=== PATIENT | male | born 1975 | race African-American/Black ===

== ENCOUNTER 2022-07-06 02:00 | Inpatient (IN) | payer MEDICARE, OTHER ==
[~2022-07-06] VITALS: Ht 162.6 cm; Wt 56.9 kg
[2022-07-06] MEDS ORDERED: REMEDY ESSENTIAL ZINC PASTE 113 GM TP PRN (02:45)
[2022-07-06] MEDS ORDERED: ONDANSETRON 4 MG/2 ML VIAL IV PRN (02:45)
[2022-07-06] MEDS ORDERED: ZOLPIDEM 5 MG TABLET PO PRN (02:45)
[2022-07-06] MEDS ORDERED: MAGNESIUM HYDROXIDE 30 ML LIQUID UDC PO PRN (02:45)
[2022-07-06] MEDS ORDERED: ACETAMINOPHEN 325 MG TABLET PO PRN (02:45)
--- NOTE | 2022-07-06 03:00 | NUR ---
ADMITTED THIS 46 Y.O. MALE DIRECT ADMIT FROM [facility],VIA GURNEY ,ALERT,ORIENTED X2-3, OXYGEN INHALATION AT 4L/MIN VIA NASAL CANNULA SATURATING 90-95%, PT IS AMOUTH BREATHER. 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 SENIOR LIVING ASSESSMENT DONE, PHOTO OF LOWER CHIN TAKEN. HISTORY OF HYPOTHYROID,DYSPHAGIA
[2022-07-06 03:02] VITALS: BP 146/95
[2022-07-06] MEDS ORDERED: DOCU-141 PO (03:49)
[2022-07-06] MEDS ORDERED: CLON0.1T PO (03:49)
[2022-07-06] MEDS ORDERED: ACET600C PO (03:49)
[2022-07-06] MEDS ORDERED: TEMA15CA5 PO (03:49)
[2022-07-06] MEDS ORDERED: PENT400T17 PO (03:49)
[2022-07-06] MEDS ORDERED: MUPI30OI3 TP (03:49)
[2022-07-06] MEDS ORDERED: LEVO75TA PO (03:49)
[2022-07-06] MEDS ORDERED: SENN-18 PO (03:49)
[2022-07-06] MEDS ORDERED: QUET25TA PO (03:49)
[2022-07-06] MEDS ORDERED: EPIN0.3A4 IM (03:49)
[2022-07-06] MEDS ORDERED: ASCO500C18 PO (03:49)
[2022-07-06] MEDS ORDERED: AMOX-430 PO (03:49)
[2022-07-06] MEDS ORDERED: LORA2TAB95 PO ×2 (03:49)
[2022-07-06] MEDS ORDERED: ACET-2154 PO (03:49)
[2022-07-06] MEDS ORDERED: OLAN5TAB3 PO (03:49)
[2022-07-06] MEDS ORDERED: CITA40TA22 PO (03:49)
[2022-07-06] MEDS ORDERED: CHLO473M5 PO (03:49)
[2022-07-06] MEDS ORDERED: OLAN10TA3 PO (03:49)
[2022-07-06] MEDS ORDERED: VITA100012 PO (03:49)
[2022-07-06] MEDS ORDERED: GUAI-1133 PO (03:49)
--- NOTE | 2022-07-06 04:00 | NUR ---
IV SITE ON LEFT AC INFILTRATED, NEW IV G20 INSERTED ON RIGHT FOREARMBREATHING TREATMENTS ADMINISTERED, ,FLORENCE ANTON NP NOTIFIED AND OBTAIED ADMISSION ORDERS, PT ABLE TO SWALLOW USING SMALL STRAW.
[2022-07-06] MEDS: GUAIFENESIN/DEXTROMETHORPHAN 5 ML UDC PO PRN (04:47)
[2022-07-06] MEDS ORDERED: VANCOMYCIN IV 1,000 MG in IV DEXTROSE 5% 250 ML IV ONE (05:00)
[2022-07-06] MEDS: IPRATROPIUM BROMIDE 0.5 MG/2.5 ML NEBU NEB PRN (05:36)
[2022-07-06 05:40] VITALS: BP 129/89
--- NOTE | 2022-07-06 06:00 | NUR ---
ATB MAXEFIME GIVEN ORDERED AND PT TOLERATED IT WELL,RESTED FAIRLY WELL, WITH OCCASSIONAL BOUTS OF NON PRODUCTIVE COUGH, ROBITUSSIN GIVEN.CT CHEST SHOWED LUNG MASS.COVID .NEGATIVE.
[2022-07-06 07:15] LABS: HEMATOCRIT 31.2 % (36.7-47.1); MEAN CORPUSCULAR HEMOGLOBIN 28.6 uug (23.8-33.4); MEAN CORPUSCULAR VOLUME 86.5 fL (73.0-96.2); PLATELET COUNT (AUTO) 890 K/uL (152-348)
--- NOTE | 2022-07-06 07:30 | NUR ---
ENDORSED TO AM NURSE IN FAIR CONDITION.
[2022-07-06 07:33] LABS: CARBON DIOXIDE 25 mmol/L (21-32); CHLORIDE 102 mmol/L (98-107); CREATININE 0.7 mg/dL (0.6-1.3); GLUCOSE 92 mg/dL (74-106); POTASSIUM 3.8 mmol/L (3.5-5.1); UREA NITROGEN, BLOOD 22 mg/dL (7-18)
[2022-07-06] MEDS: ALBUTEROL SULFATE 1.25 MG/3 ML NEBU NEB SCH ×3 (08:17→19:34)
--- NOTE | 2022-07-06 10:49 | NUR ---
WOUND CARE CONSULT: PT PRESENTS WITH SACRAL INTACT DEEP TISSUE INJURY WELL CHIN LESIONS, PRESENT ON ADMISSION. SURGICAL CONSULT CALLED TO DR LAKHANI. RECOMMENDATIONS MADE FOR SKIN PROTECTION. DISCUSSED WITH NURSING STAFF. CHIN WOUNDS/LESIONS COVERED WITH BORDERGAUZE AT THIS TIME. FAMILY MEMBER AT BEDSIDE. MD IN AGREEMENT WITH PLAN OF CARE.
[2022-07-06 11:45] VITALS: BP 132/78
[2022-07-06] MEDS ORDERED: Medication Not On Formulary EA (Lorazepam (Ativan) 2 MG) PO PRN (14:30)
[2022-07-06] MEDS ORDERED: DOCUSATE SODIUM 100 MG CAPSULE PO PRN (14:30)
[2022-07-06] MEDS ORDERED: SENNOSIDES 1 TABLET PO PRN (14:30)
[2022-07-06] MEDS ORDERED: TEMAZEPAM 15 MG CAPSULE PO PRN (14:30)
[2022-07-06] MEDS ORDERED: LORAZEPAM 1 MG TABLET PO PRN (15:00)
--- NOTE | 2022-07-06 15:53 | NUR ---
Pt. noted to be stable during the shift. Alert and oriented x4. No acute distress noted. Able to got to the bathroom with assist. No c/o pain. All need attended and met. Able to make the need known. Compliance with the care given. Will continue monitoring the patient.
[2022-07-06 15:57] VITALS: BP 152/97
[2022-07-06] MEDS: ASCORBIC ACID 500 MG TABLET PO SCH (16:04)
[2022-07-06] MEDS: QUETIAPINE FUMARATE 25 MG TABLET PO SCH (16:04)
[2022-07-06] MEDS: PENTOXIFYLLINE 400 MG TABLET.SA PO SCH (16:36)
[2022-07-06] MEDS: CHLORHEXIDINE GLUCONATE 15 ML MOUTHWASH MM SCH (16:36)
[2022-07-06] MEDS: CEFEPIME HCL 1 G in IV DEXTROSE 5% 50 ML IV SCH ×3 (19:00→23:26)
--- NOTE | 2022-07-06 19:30 | NUR ---
Received patient resting in bed with sister by the bedside. AAOx4. No signs of distress noted at this time. On 2L O2 NC. Is SR on tele monitor, HR 98. Right FA IV access is intact and patent. Is ambulatory and complains of no pain. Concerns were communicated and resolved at this time. Endorsed safety and comfort measures.
[2022-07-06 20:00] VITALS: BP 152/95
[2022-07-06] MEDS: OLANZAPINE 5 MG TABLET PO SCH (20:34)
[2022-07-06] MEDS: MUPIROCIN 2% OINT 22 GM TUBE TP SCH (20:35)
[2022-07-07] VITALS: BP 168/105
[2022-07-07] MEDS: ALBUTEROL SULFATE 1.25 MG/3 ML NEBU NEB SCH ×4 (00:38→19:53)
--- NOTE | 2022-07-07 00:50 | NUR ---
Patient's blood pressure was noted to be elevated 168/105, HR 96, SR on tele monitor. On 2L NC, 96% O2 sat. No distress noted at this time. Is able to fall asleep with adequate rest comfortably. Denies any pain. Notified Dr. Cuevas on current situation. No additional orders provided. Will continue to monitor.
[2022-07-07 04:00] VITALS: BP 175/124
[2022-07-07] MEDS: CHLORHEXIDINE GLUCONATE 15 ML MOUTHWASH MM SCH ×3 (06:02→21:15)
[2022-07-07] MEDS: CEFEPIME HCL 1 G in IV DEXTROSE 5% 50 ML IV SCH (06:32)
--- NOTE | 2022-07-07 06:50 | NUR ---
Patient slept intermittently throughout the night. No reaction to antibiotics were noted. No signs of distress or complains of pain. Is SR on tele monitor, HR 96. Blood pressure is still elevated, will endorse. All needs were attended to and met. Maintained safety and comfort measures.
[2022-07-07] MEDS ORDERED: LEVOTHYROXINE SODIUM 75 MCG TABLET PO SCH (07:00)
[2022-07-07 07:34] LABS: HEMATOCRIT 35.2 % (36.7-47.1); MEAN CORPUSCULAR HEMOGLOBIN 28.7 uug (23.8-33.4); MEAN CORPUSCULAR VOLUME 86.3 fL (73.0-96.2); PLATELET COUNT (AUTO) 973 K/uL (152-348)
[2022-07-07 08:09] LABS: THYROID STIMULATING HORMONE 13.496 mIU/mL (0.358-3.740)
[2022-07-07 09:00] VITALS: BP 153/105
[2022-07-07] MEDS ORDERED: Medication Not On Formulary EA (Ascorbic Acid (Vitamin C) 500 MG) PO SCH (09:00)
[2022-07-07] MEDS ORDERED: CITALOPRAM HYDROBROMIDE PO SCH (09:00)
[2022-07-07 09:04] LABS: BILIRUBIN,TOTAL 0.5 mg/dL (0.2-1.0); POTASSIUM 3.8 mmol/L (3.5-5.1)
[2022-07-07 09:07] LABS: TOTAL PROTEIN, SERUM 9.5 g/dL (6.4-8.2)
[2022-07-07 09:08] LABS: CREATININE 0.8 mg/dL (0.6-1.3)
[2022-07-07] MEDS: MUPIROCIN 2% OINT 22 GM TUBE TP SCH ×2 (09:12→21:15)
[2022-07-07] MEDS: PENTOXIFYLLINE 400 MG TABLET.SA PO SCH ×3 (09:13→18:02)
[2022-07-07] MEDS: VITAMIN E 400 UNITS CAPSULE PO SCH (09:13)
[2022-07-07] MEDS: OLANZAPINE 5 MG TABLET PO SCH ×2 (09:13→21:03)
[2022-07-07] MEDS: ASCORBIC ACID 500 MG TABLET PO SCH ×2 (09:14→18:02)
[2022-07-07] MEDS: CITALOPRAM 20 MG TABLET PO SCH (09:14)
[2022-07-07] MEDS: QUETIAPINE FUMARATE 25 MG TABLET PO SCH ×2 (09:14→18:02)
[2022-07-07 10:25] LABS: MAGNESIUM 2.4 mg/dL (1.8-2.4); PHOSPHOROUS 3.9 mg/dL (2.5-4.9)
[2022-07-07 11:40] VITALS: BP 148/92
[2022-07-07] MEDS: METOPROLOL TARTRATE 25 MG TABLET PO SCH ×2 (13:24→21:14)
[2022-07-07] MEDS: CEFEPIME HCL 2 G in IV DEXTROSE 5% 100 ML IV SCH ×2 (13:25→21:38)
[2022-07-07 15:40] VITALS: BP 128/93
--- NOTE | 2022-07-07 19:18 | NUR ---
Received report from DESIRAE Nathan, NOC shift. Patient is alert and oriented x3-4, and understands Greenlandic. Upon speaking, patient is unable to communicate clearly, but able to make needs known via garble speech and arm gestures. Upon morning vital signs, RN noted high blood pressure 153/105. RN notified Dr. Francisco MD regarding the elevation of blood pressure consistent with the studio model from report. MD ordered Metoprol 25mg PO Q12H for blood pressure. Upon administration, patient's blood pressure for 1600 had reduce to 128/93. Other vital signs within normal limits of baseline. Per report, patient had been on 1L NC. RN noted without NC, patient is saturating 98% on RA. Patient reports no SOB. Patient tolerates PO medications and puree diet well. IV antibiotics given as ordered. Patient voids adequate. Tele monitor indicates sinus rhythm. Patient seen ambulating around the unit with standby assist. Patient is steady. Patient expressed he enjoyed the walk to stretch his legs. Throughout the day, RN changed chin dressing x3 due to soiling. RN followed MD orders for wound treatment as indicated. Dressing is clean, dry and intact. [place] precautions observed. Patient has family member, Dwain, at bedside. No acute distress noted. Endorsed continuation of care to DESIRAE Nathan.
--- NOTE | 2022-07-07 19:35 | NUR ---
Received patient laying in bed comfortably with the sister and dad by bedside. AAOx4. No complaints of pain, SOB at this time. Is SR on tele monitor, HR 87. Right FA IV access is intact and patent. Safety and comfort measures are enforced. All concerns were addressed and were verbally understood by family members.
[2022-07-07 20:00] VITALS: BP 144/101
[2022-07-08] VITALS: BP 141/97
[2022-07-08] MEDS: ALBUTEROL SULFATE 1.25 MG/3 ML NEBU NEB SCH ×4 (01:07→20:56)
[2022-07-08 04:00] VITALS: BP 148/102
[2022-07-08] MEDS: CEFEPIME HCL 2 G in IV DEXTROSE 5% 100 ML IV SCH ×3 (06:09→21:37)
[2022-07-08] MEDS: LEVOTHYROXINE SODIUM 100 MCG TABLET PO SCH (06:09)
[2022-07-08 06:38] LABS: ABG BASE EXCESS 2.9 mmol/L; ABG HCO3 26.5 mmol/L; ABG PCO2 37.4 mmHg (35.0-45.0); ABG PH 7.469 (7.350-7.450); ABG PO2 71.5 mmHg (75.0-100.0); ABG SITE LEFT RADIAL; COHb 0.5 % (0.5-1.5); MetHb 0.1 % (0.0-1.5); O2Hb 94.9 % (94.0-97.0); VENT MODE ROOM AIR
[2022-07-08 06:42] LABS: HEMATOCRIT 35.2 % (36.7-47.1); MEAN CORPUSCULAR HEMOGLOBIN 28.4 uug (23.8-33.4); MEAN CORPUSCULAR VOLUME 86.6 fL (73.0-96.2); PLATELET COUNT (AUTO) 983 K/uL (152-348)
[2022-07-08 06:53] LABS: BILIRUBIN,TOTAL 0.3 mg/dL (0.2-1.0); CREATININE 0.8 mg/dL (0.6-1.3); MAGNESIUM 2.4 mg/dL (1.8-2.4); PHOSPHOROUS 4.2 mg/dL (2.5-4.9); POTASSIUM 4.4 mmol/L (3.5-5.1); TOTAL PROTEIN, SERUM 9.5 g/dL (6.4-8.2)
--- NOTE | 2022-07-08 07:00 | NUR ---
Patient slept comfortably throughout the night. No complaints of pain or SOB was noted at this time. SR on tele monitor, HR 83. No adverse reaction was noted for administered antibiotics. Safety and comfort measures were maintained. All needs were attended to and met.
[2022-07-08] MEDS: ASCORBIC ACID 500 MG TABLET PO SCH ×2 (09:32→16:24)
[2022-07-08] MEDS: OLANZAPINE 5 MG TABLET PO SCH ×2 (09:32→21:42)
[2022-07-08] MEDS: QUETIAPINE FUMARATE 25 MG TABLET PO SCH ×2 (09:33→16:24)
[2022-07-08] MEDS: METOPROLOL TARTRATE 25 MG TABLET PO SCH ×2 (09:38→21:42)
[2022-07-08] MEDS: CHLORHEXIDINE GLUCONATE 15 ML MOUTHWASH MM SCH ×2 (09:43→21:26)
[2022-07-08] MEDS: PENTOXIFYLLINE 400 MG TABLET.SA PO SCH ×3 (09:43→16:24)
[2022-07-08] MEDS: MUPIROCIN 2% OINT 22 GM TUBE TP SCH ×2 (09:44→21:37)
[2022-07-08] MEDS: VITAMIN E 400 UNITS CAPSULE PO SCH (09:44)
[2022-07-08] MEDS: CITALOPRAM 20 MG TABLET PO SCH (09:46)
[2022-07-08 11:44] VITALS: BP 125/85
[2022-07-08 15:47] VITALS: BP 124/89
[2022-07-08] MEDS: ASPIRIN EC 81 MG TABLET.DR PO SCH (15:51)
[2022-07-08 20:00] VITALS: BP 131/81
[2022-07-08] MEDS: GUAIFENESIN/DEXTROMETHORPHAN 5 ML UDC PO PRN (22:26)
[2022-07-09] MEDS: ALBUTEROL SULFATE 1.25 MG/3 ML NEBU NEB SCH ×4 (00:30→20:20)
[2022-07-09] MEDS: IV NS 1000 ML 1,000 ML IV PRN (02:13)
[2022-07-09 04:00] VITALS: BP 175/101
[2022-07-09] MEDS: CEFEPIME HCL 2 G in IV DEXTROSE 5% 100 ML IV SCH ×3 (05:28→21:11)
[2022-07-09] MEDS: LEVOTHYROXINE SODIUM 100 MCG TABLET PO SCH (06:04)
--- NOTE | 2022-07-09 07:01 | NUR ---
Pt stable. Meddto MR reBP elevated no prn med. Ambulate to BR [facility] assistance. 1:1 Sitter at bedside.
[2022-07-09] MEDS ORDERED: IV NORMAL SALINE 250 ML IV ONE (08:56)
[2022-07-09] MEDS ORDERED: SWABABLE VALVE TRANSFER SET EA MC ONE (08:56)
[2022-07-09] MEDS ORDERED: IOHEXOL 300MG/ML 100 ML INFUS..BTL ONE (08:56)
--- NOTE | 2022-07-09 09:06 | NUR ---
Patient has been NPO since midnight, he just got picked up for CT scan of chest, abdomen and pelvis by radiology.Consent form signed by the patient. His father is at bedside, went downstairs with them.
[2022-07-09] MEDS: CHLORHEXIDINE GLUCONATE 15 ML MOUTHWASH MM SCH ×2 (09:30→21:13)
[2022-07-09] MEDS: VITAMIN E 400 UNITS CAPSULE PO SCH (09:30)
[2022-07-09] MEDS: PENTOXIFYLLINE 400 MG TABLET.SA PO SCH ×3 (09:31→16:41)
[2022-07-09] MEDS: CITALOPRAM 20 MG TABLET PO SCH (09:31)
[2022-07-09] MEDS: ASPIRIN EC 81 MG TABLET.DR PO SCH (09:31)
[2022-07-09] MEDS: ASCORBIC ACID 500 MG TABLET PO SCH ×2 (09:31→16:41)
[2022-07-09] MEDS: MUPIROCIN 2% OINT 22 GM TUBE TP SCH ×2 (09:31→21:17)
[2022-07-09] MEDS: QUETIAPINE FUMARATE 25 MG TABLET PO SCH ×2 (09:32→16:40)
[2022-07-09] MEDS: OLANZAPINE 5 MG TABLET PO SCH ×2 (09:32→21:12)
[2022-07-09] MEDS: METOPROLOL TARTRATE 25 MG TABLET PO SCH ×2 (10:16→21:13)
[2022-07-09 12:45] VITALS: BP 103/72
[2022-07-09 16:07] VITALS: BP 109/77
[2022-07-09 20:40] VITALS: BP 130/93
[2022-07-09] MEDS: GUAIFENESIN/DEXTROMETHORPHAN 5 ML UDC PO PRN (21:11)
[2022-07-10] MEDS: ALBUTEROL SULFATE 1.25 MG/3 ML NEBU NEB SCH ×4 (01:30→18:46)
[2022-07-10] MEDS: CEFEPIME HCL 2 G in IV DEXTROSE 5% 100 ML IV SCH ×3 (05:26→22:01)
[2022-07-10 05:44] VITALS: BP 154/94
[2022-07-10] MEDS: LEVOTHYROXINE SODIUM 100 MCG TABLET PO SCH (06:02)
[2022-07-10] MEDS: IV NS 1000 ML 1,000 ML IV PRN (06:09)
--- NOTE | 2022-07-10 07:13 | NUR ---
Pt stable appear anxious this am.
[2022-07-10] MEDS: MUPIROCIN 2% OINT 22 GM TUBE TP SCH ×2 (08:19→21:00)
[2022-07-10] MEDS: CHLORHEXIDINE GLUCONATE 15 ML MOUTHWASH MM SCH ×2 (08:19→21:06)
[2022-07-10] MEDS: CITALOPRAM 20 MG TABLET PO SCH (08:20)
[2022-07-10] MEDS: ASCORBIC ACID 500 MG TABLET PO SCH ×2 (08:20→17:06)
[2022-07-10] MEDS: QUETIAPINE FUMARATE 25 MG TABLET PO SCH ×2 (08:20→17:06)
[2022-07-10] MEDS: PENTOXIFYLLINE 400 MG TABLET.SA PO SCH ×3 (08:20→17:06)
[2022-07-10] MEDS: VITAMIN E 400 UNITS CAPSULE PO SCH (08:20)
[2022-07-10] MEDS: OLANZAPINE 5 MG TABLET PO SCH ×2 (08:20→21:03)
[2022-07-10] MEDS: ASPIRIN EC 81 MG TABLET.DR PO SCH (08:20)
[2022-07-10] MEDS: METOPROLOL TARTRATE 25 MG TABLET PO SCH ×3 (08:33→21:02)
[2022-07-10 08:40] VITALS: BP 110/78
--- NOTE | 2022-07-10 09:00 | NUR ---
Received pt in the AM, appears peaceful to me, in a good mood. No pain, no distress.
[2022-07-10 10:07] LABS: *IMMUNOGLOBULIN G, SERUM 3067 mg/dL (603-1613)
--- NOTE | 2022-07-10 11:00 | NUR ---
Patient requested to take a shower. His father at bedside. His father assisted him with the shower. Patient appears happy.
--- NOTE | 2022-07-10 11:30 | NUR ---
Changed patient's dressing on his chin after the shower, put mepelex on his coccyx area sore.
[2022-07-10] MEDS ORDERED: REMEDY ESSENTIAL ZINC PASTE 113 GM TOP PRN (11:45)
[2022-07-10 17:31] LABS: HEMATOCRIT 35.9 % (36.7-47.1); MEAN CORPUSCULAR HEMOGLOBIN 28.3 uug (23.8-33.4); MEAN CORPUSCULAR VOLUME 86.4 fL (73.0-96.2); PLATELET COUNT (AUTO) 836 K/uL (152-348)
[2022-07-10] MEDS: GUAIFENESIN/DEXTROMETHORPHAN 5 ML UDC PO PRN (21:02)
[2022-07-11] MEDS: ALBUTEROL SULFATE 1.25 MG/3 ML NEBU NEB SCH ×4 (00:22→21:00)
[2022-07-11] MEDS: CEFEPIME HCL 2 G in IV DEXTROSE 5% 100 ML IV SCH ×2 (06:00→22:00)
[2022-07-11] MEDS: LEVOTHYROXINE SODIUM 100 MCG TABLET PO SCH (06:00)
[2022-07-11 07:55] LABS: MEAN CORPUSCULAR HEMOGLOBIN 27.9 uug (23.8-33.4); MEAN CORPUSCULAR VOLUME 86.5 fL (73.0-96.2); PLATELET COUNT (AUTO) 850 K/uL (152-348)
--- NOTE | 2022-07-11 07:55 | NUR ---
Patient stable. 1:1 sitter at bedside. Afebrile.
[2022-07-11] MEDS: VITAMIN E 400 UNITS CAPSULE PO SCH (08:12)
[2022-07-11] MEDS: ASCORBIC ACID 500 MG TABLET PO SCH ×2 (08:12→16:49)
[2022-07-11] MEDS: CITALOPRAM 20 MG TABLET PO SCH (08:12)
[2022-07-11] MEDS: OLANZAPINE 5 MG TABLET PO SCH ×2 (08:12→20:54)
[2022-07-11] MEDS: QUETIAPINE FUMARATE 25 MG TABLET PO SCH ×2 (08:12→16:49)
[2022-07-11] MEDS: CHLORHEXIDINE GLUCONATE 15 ML MOUTHWASH MM SCH ×2 (08:12→21:00)
[2022-07-11] MEDS: METOPROLOL TARTRATE 25 MG TABLET PO SCH ×2 (08:12→20:49)
[2022-07-11] MEDS: ASPIRIN EC 81 MG TABLET.DR PO SCH (08:12)
[2022-07-11 08:14] LABS: ALANINE AMINOTRANSFERASE 125 U/L (16-63); ALKALINE PHOSPHATASE 181 U/L (50-136); ASPARTATE AMINOTRANSFERASE 76 U/L (15-37); BILIRUBIN,TOTAL 0.5 mg/dL (0.2-1.0); CARBON DIOXIDE 30 mmol/L (21-32); CHLORIDE 100 mmol/L (98-107); CREATININE 0.7 mg/dL (0.6-1.3); GLUCOSE 91 mg/dL (74-106); MAGNESIUM 2.4 mg/dL (1.8-2.4); PHOSPHOROUS 3.4 mg/dL (2.5-4.9); POTASSIUM 4.1 mmol/L (3.5-5.1); TOTAL PROTEIN, SERUM 9.3 g/dL (6.4-8.2); UREA NITROGEN, BLOOD 18 mg/dL (7-18)
[2022-07-11] MEDS: GUAIFENESIN/DEXTROMETHORPHAN 5 ML UDC PO PRN (09:02)
[2022-07-11] MEDS: IPRATROPIUM BROMIDE 0.5 MG/2.5 ML NEBU NEB PRN (09:15)
[2022-07-11] MEDS: PENTOXIFYLLINE 400 MG TABLET.SA PO SCH ×3 (10:11→16:49)
[2022-07-11] MEDS: MUPIROCIN 2% OINT 22 GM TUBE TP SCH ×2 (10:49→20:47)
[2022-07-11 11:37] VITALS: BP 101/67
[2022-07-11 16:00] VITALS: BP 114/83
[2022-07-11 20:19] VITALS: BP 130/89
[2022-07-12] MEDS: ALBUTEROL SULFATE 1.25 MG/3 ML NEBU NEB SCH ×3 (01:03→12:49)
--- NOTE | 2022-07-12 02:27 | NUR ---
pt with sitter at bedside iv out attempted to restart by charge nurse and additional nurse on the unit but patient ran around in corridor and refused to have iiv reinserted. Teaching done as to the importance of having the oksana reinserted but he was adamant that he did not want it done. infusion held until patient is compliant.
[2022-07-12 04:55] VITALS: BP 133/95
[2022-07-12] MEDS: CEFEPIME HCL 2 G in IV DEXTROSE 5% 100 ML IV SCH (06:00)
--- NOTE | 2022-07-12 06:17 | NUR ---
0600 am antibiotic not given awaiting picc line insertion.
[2022-07-12] MEDS: LEVOTHYROXINE SODIUM 100 MCG TABLET PO SCH (06:27)
[2022-07-12 07:06] LABS: A/G RATIO 0.5 (0.7-1.7); ALPHA-1-GLOBULIN 0.4 g/dL (0.0-0.4); ALPHA-2-GLOBULIN 1.1 g/dL (0.4-1.0); BETA GLOBULIN 1.3 g/dL (0.7-1.3); GAMMA GLOBULIN 2.9 g/dL (0.4-1.8); GLOBULIN, TOTAL 5.7 g/dL (2.2-3.9); M-SPIKE Not Observed g/dL (Not Observed)
[2022-07-12 07:53] LABS: HEMATOCRIT 36.2 % (36.7-47.1); MEAN CORPUSCULAR HEMOGLOBIN 28.4 uug (23.8-33.4); MEAN CORPUSCULAR VOLUME 86.8 fL (73.0-96.2); PLATELET COUNT (AUTO) 765 K/uL (152-348)
[2022-07-12 08:02] LABS: CREATININE 0.8 mg/dL (0.6-1.3)
[2022-07-12] MEDS: QUETIAPINE FUMARATE 25 MG TABLET PO SCH (08:20)
[2022-07-12] MEDS: OLANZAPINE 5 MG TABLET PO SCH (08:20)
[2022-07-12] MEDS: METOPROLOL TARTRATE 25 MG TABLET PO SCH (08:20)
[2022-07-12] MEDS: VITAMIN E 400 UNITS CAPSULE PO SCH (08:20)
[2022-07-12] MEDS: CITALOPRAM 20 MG TABLET PO SCH (08:20)
[2022-07-12] MEDS: ASCORBIC ACID 500 MG TABLET PO SCH (08:20)
[2022-07-12] MEDS: PENTOXIFYLLINE 400 MG TABLET.SA PO SCH ×2 (08:20→13:23)
[2022-07-12] MEDS ORDERED: AMOXICILLIN-CLAVUL 875-125MG TABLET PO SCH (09:00)
[2022-07-12] MEDS: MUPIROCIN 2% OINT 22 GM TUBE TP SCH (09:02)
[2022-07-12] MEDS: CHLORHEXIDINE GLUCONATE 15 ML MOUTHWASH MM SCH (09:02)
[2022-07-12 11:31] VITALS: BP 105/75
[2022-07-12 15:37] VITALS: BP 105/80
[2022-07-12] MEDS ORDERED: LEVO100T10 PO (16:13)
[2022-07-12] MEDS ORDERED: METO25TA6 PO (16:13)
[2022-07-12] MEDS ORDERED: AMOX1TAB16 PO (16:13)
--- NOTE | 2022-07-12 16:43 | NUR ---
dc orders received noted and carried out.dc instruction and education given to pt father .fax the dc paper to shelter.pt left the facility via private car in stable condition
[2022-07-13 15:06] LABS: IMMUNOGLOBULIN M, SERUM 97 mg/dL (20-172)
== END 2022-07-12 16:45 | disposition home or self-care (01) | DRG 871 ==
LOC: TELE3 02:00 → MEDSURG3 07-08 08:03
PROVIDERS: ADMIT Internal Medicine; ATTEND Internal Medicine
DX: A41.9 Sepsis, unspecified organism (principal); J18.9 Pneumonia, unspecified organism; E46 Unspecified protein-calorie malnutrition; J90 Pleural effusion, not elsewhere classified; J98.11 Atelectasis; G93.49 Other encephalopathy; D64.9 Anemia, unspecified; D75.839 Thrombocytosis, unspecified; E03.9 Hypothyroidism, unspecified; E88.09 Other disorders of plasma-protein metabolism, not elsewhere classified; F41.9 Anxiety disorder, unspecified; I10 Essential (primary) hypertension; J20.9 Acute bronchitis, unspecified; C44.320 Squamous cell carcinoma of skin of unspecified parts of face; R91.8 Other nonspecific abnormal finding of lung field; F29 Unspecified psychosis not due to a substance or known physiological condition; S01.80XA Unspecified open wound of other part of head, initial encounter; X58.XXXA Exposure to other specified factors, initial encounter; Y93.9 Activity, unspecified; Y92.89 Other specified places as the place of occurrence of the external cause; D72.829 Elevated white blood cell count, unspecified; R74.01 Elevation of levels of liver transaminase levels; Z86.61 Personal history of infections of the central nervous system; Z91.030 Bee allergy status; Z88.1 Allergy status to other antibiotic agents; Z92.3 Personal history of irradiation
CPT/HCPCS: 36415; 36600; 71045; 71250; 71260; 76705; 82378; 82746; 82784; 83550; 83615; 83735; 84100; 84155; 84165; 84443; 84481; 85025; 85610; 85730; 86140; 86334; 93005; 93307; 94640; 94664; A4663; A6209; A6213; G0378; J0692; J3370; J3590; J7040; J7050; Q9967